=== PATIENT | female | born 1970 | race Caucasian/White ===

== ENCOUNTER 2016-09-04 00:43 | Emergency (ER) | payer MEDICAID ==
[~2016-09-04] VITALS: Ht 165.1 cm; Wt 131.5 kg
[2016-09-04 00:53] VITALS: BP_SYST 138; BP_SYST 155; BP_DIAS 93; BP_DIAS 96
--- NOTE | 2016-09-04 02:08 | NUR ---
PT TAKEN TO BED 2
--- NOTE | 2016-09-04 02:19 | NUR ---
45Y/F PATIENT PRESENTS TO ED WITH C/O GENERALIZED RASH X 2 DAYS. PATIENT STATES RASH STARTED ON LOWER ABD AND LT LEG, WITH THE WORST BEING TO RT LOWER ABD X2DAYS. DENIES PAIN OR ITCHINESS. STATES SHE HAS BEEN USING [facility] FOR RASH. NO MED HX.; SKIN IS PINK/WARM/DRY, GENERALIZED RASH AND CELLULITIS NOTED; AAOX4 WITH EVEN AND STEADY GAIT; LUNGS CLEAR BL; HR EVEN AND REGULAR; PT DENIES ANY FEVER, CP, SOB, OR COUGH AT THIS TIME; PATIENT STATES PAIN OF 0/10 AT THIS TIME; VSS; PATIENT POSITIONED FOR COMFORT; HOB ELEVATED; BEDRAILS UP X2; BED DOWN. ER MD MADE AWARE OF PT STATUS.
--- NOTE | 2016-09-04 03:01 | NUR ---
Dr. Sanchez evaluating patient at bedside.
[2016-09-04 03:12] VITALS: BP 138/93
--- NOTE | 2016-09-04 03:12 | NUR ---
Patient discharged with v/s stable. Written and verbal after care instructions given and explained. Patient alert, oriented and verbalized understanding of instructions. Ambulatory with steady gait. All questions addressed prior to discharge. ID band removed. Patient advised to follow up with PMD. Rx of KEFLEX 500MG AND BACTRIM DS 800MG-160MG given. Patient educated on indication of medication including possible reaction and side effects. Opportunity to ask questions provided and answered.
== END 2016-09-04 03:12 | disposition home or self-care (01) ==
LOC: MED 00:43
DX: L03.311 Cellulitis of abdominal wall (principal); F17.200 Nicotine dependence, unspecified, uncomplicated